=== PATIENT | female | born 1950 | race Hispanic/Latino ===

== ENCOUNTER 2020-04-22 10:42 | Inpatient (IN) | payer MEDICARE, OTHER ==
[~2020-04-22] VITALS: Ht 152.4 cm; Wt 60.9 kg
--- NOTE | 2020-04-22 19:35 | NUR ---
REPORT RECEIVED FROM SABI JOHNSTON.
--- NOTE | 2020-04-22 20:09 | NUR ---
SCHEDULED MEDICATIONS ADMINISTERED, ASSESSMENT COMPLETE, VS AND I/O'S COMPLETE. IVF INFUSING WNL, CALL LIGHT WITHIN REACH, PT STATES NO NEEDS AT THIS TIME
--- NOTE | 2020-04-22 21:31 | NUR ---
PT HAD CALLED WHEN I WAS IN ANOTHER PT RM, PT NEEDED TO GET UP TO THE BR, PT HAD VOIDED ON THE FLOOR BY THE TIME I GOT INTO THE RM, CLEANED UP FLOOR, PT BK IN BED AT THIS TIME, SCD'S REAPPLIED, NO FURTHER REQUEST AT THIS TIME
--- NOTE | 2020-04-23 02:12 | NUR ---
SCHEDULED VITAL SIGNS COMPLETE, ASSESSMENT, I/O'S COMPLETE. IVF INFUSING WNL. PT REQUESTED TO USE BEDPAN. TEMP 100.0, BLANKETS REMOVED, WILL CONTINUE TO MONITOR. CALL LIGHT WITHIN REACH.
--- NOTE | 2020-04-23 07:30 | NUR ---
Patient resting in bed at this time, respirations even and non labored. No notable distress. Call light within reach.
--- NOTE | 2020-04-23 08:39 | NUR ---
Chest x-ray completed.
--- NOTE | 2020-04-23 10:20 | NUR ---
Spoke with Danielle. She lives on the [place] with her nephew Chepe. States she is not enrolled with [facility]. Has not been feeling well. Plans on Lab vashti today as TF. Denies need for DME, but states she may need a commode as she has had diarreah with her gall bladder. Information given on [employer]. Pt has a cane and walker from her dad, but does not use. 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 Denies much use now. Declined Peer to Peer support from [facility] to discuss meth use. Plans to discharge to home when cleared by following surgery.
--- NOTE | 2020-04-23 11:30 | NUR ---
Patient resting in bed, respirations even and non labored. No needs at this time. Personal supplies and call light within reach.
--- NOTE | 2020-04-23 12:57 | NUR ---
PATIENT RESTING IN BED. VITAL SIGNS AND I&O DONE. CALL LIGHT WITHIN REACH. NO OTHER NEEDS AT THIS TIME
--- NOTE | 2020-04-23 13:14 | EKG ---
[facility] [address] [place], [place] [address] Signed Normal sinus rhythm Normal ECG No previous ECGs available Confirmed by DRE ALBARADO MD ([id number]) on 04/23/2020 1:13:49 PM Electronically Signed By: DRE ALBARADO MD 04/23/20 1314 PATIENT NAME: LEYLA VERA Electrocardiogram DATE OF : 48 PHYSICIAN: DRE ALBARADO MD REPORT #: [id number] REPORT IS CONFIDENTIAL AND NOT TO BE RELEASED WITHOUT AUTHORIZATION
--- NOTE | 2020-04-23 14:05 | NUR ---
PT ALERT, RESTING ON R SIDE WITH TV OFF. PT VERY QUIET AND SOFT SPOKEN. OCCASIONALLY SPEACH IS SLURRED, BUT MOSTLY PLEASANT. PT SAID SHE IS TIRED, GAVE BLESSING AND WILL FOLLOW
--- NOTE | 2020-04-23 14:16 | NUR ---
PATIENT IS IN BED RESTING. CALL LIGHT WAS ANSWERED AND PATIENT WALKED TO BR. FRESH GOWN AND DEPENDS GIVEN. ANOTHER PILLOW REQUESTED AND GIVEN. CALL LIGHT IS IN REACH. NO OTHER NEEDS AT THIS TIME.
--- NOTE | 2020-04-23 14:33 | NUR ---
PATIENT WAS WIPED DOWN WITH HIBICLEANS BEFORE SURGERY. CALL LIGHT IN REACH. NO OTHER NEEDS AT THIS TIME.
--- NOTE | 2020-04-23 16:10 | NUR ---
Patient left floor for surgery.
--- NOTE | 2020-04-23 18:56 | NUR ---
04/23/20 1856 Rubi Giang 1829 PT ARRIVED TO PACU ON 6L VIA MASK, PT ASLEEP WITH ORAL AIRWAY IN PLACE. RESP EVEN AND UNLABORED. 183 PT WAKES TO TACTILE STIMULI AND ORAL AIRWAY REMOVED. PT REORIENTED TO PACU. PT VERY DROWSY.
--- NOTE | 2020-04-23 19:39 | NUR ---
REPORT RECEIVED FROM SABI VILLA. PT STILL IN SURGERY.
--- NOTE | 2020-04-23 19:40 | NUR ---
PATIENT RETURNED FROM SURGERY, ASSESSMENT AND VITALS COMPLETE. IVF INFUSING WNL. VSS. PT ON 3L 02 NC, ABLE TO TITRATE TO ROOM AIR, SPO2 98%. PT UP TO BSC WITH SBA, VOID 400 ML. LAP SITES WITH SCANT AMOUNT SANGUINOUS DRAINAGE, MICHELL DRAIN WITH SMALL AMOUNT BRIGHT RED DRAINAGE. BOWEL TONES PRESENT, ABD SOFT. PT DENIES NAUSEA, TOLERATING SIPS OF WATER. NEW GOWN AND WARM BLANKET PROVIDED. PT STATES WILL UTILIZE CALL LIGHT. WILL CONTINUE TO MONITOR.
--- NOTE | 2020-04-23 20:49 | NUR ---
POST OP VITALS ASSESSED, SCHEDULED MEDICATIONS ADMINISTERED. ATTEMPTED TO CALL PT SON WITH UPDATE, NO ANSWER OR WRONG NUMBER PROVIDED. VSS. IVF INFUSING WNL. PT DENIES NAUSEA, STATES PAIN IS 2/10. WILL CONTINUE TO MONITOR.
--- NOTE | 2020-04-23 21:45 | NUR ---
POST OP VITALS ASSESSED, VSS. PT RESTING IN BED, DENIES PAIN OR NAUSEA. CALL LIGHT WITHIN REACH, NO OTHER NEEDS REPORTED AT THIS TIME. WILL CONT TO MONITOR.
--- NOTE | 2020-04-23 22:15 | NUR ---
pt was given a sandwich box.
--- NOTE | 2020-04-23 22:50 | NUR ---
LAST SET POST OP VSS. pt RESTING IN BED, DROWSY. LAP SITES W SCANT SANGUINOUS DRAINAGE. RIC DRAIN WITH SMALL AMOUNT SANGUINOUS DRAINAGE. pt DENIES PAIN. CALL LIGHT IN REACH.
--- NOTE | 2020-04-24 00:37 | NUR ---
SCHEDULED ABX ADMINISTERED. PRN TYLENOL GIVEN PER PT REQUEST FOR 1/10 PAIN. REPOSITIONED IN BED. IVF INFUSING WNL. CALL LIGHT WITHIN REACH, NO OTHER NEEDS AT THIS TIME, WILL CONT TO MONITOR.
--- NOTE | 2020-04-24 02:20 | NUR ---
ROUNDED ON PATIENT, VS COMPLETE. PT STATES "TYLENOL HELPED" AND IS EXPERIENCING "SLIGHT" PAIN. RESTING IN BED WITH LIGHTS OFF, CALL LIGHT WITHIN REACH.
--- NOTE | 2020-04-24 02:38 | NUR ---
ASSESSMENT COMPLETE. NEW BAG IVF STARTED. CALL LIGHT IN REACH.
--- NOTE | 2020-04-24 05:02 | NUR ---
PT RETURNED FROM SURGERY, POST OP VITALS COMPLETE. LAP SITES X3, WNL, SCANT SANGUINOUS DRAINAGE ON DRESSINGS. REINFORCED WITH GAUZE. RIC DRAIN IN PLACE, MODERATE AMOUNT SANGUINOUS DRAINAGE. PT STATES PAIN IS TOLERABLE, RATES 1/10. DENIES NAUSEA. IVF INFUSING WNL. VSS. BOWEL TONES ACTIVE, ABD MILDLY DISTENDED, SOFT UPON PALPATION. TOLERATING REGULAR DIET. ON ROOM AIR. USES CALL LIGHT APPROPRIATELY.
--- NOTE | 2020-04-24 05:48 | NUR ---
CALL LIGHT ANSWERED. SBA TO BR TO VOID. DRAINAGE NOTED ON GOWN, SMALL AMOUNT SEROSANGUINOUS DRAINAGE FROM RIC DRAIN SITE. GAUZE DRESSING REMOVED, CLEAN GAUZE APPLIED. RIC DRAIN EMPTIED. LAP SITES REINFORCED WITH GAUZE. CLEAN GOWN AND LINENS PROVIDED. IVF INFUSING WNL. VITALS COMPLETE--VSS. CALL LIGHT IN REACH. ROOM TIDIED. WILL CONT TO MONITOR.
--- NOTE | 2020-04-24 07:10 | NUR ---
In room for bedside shift report. Pt lying in bed, eyes closed, breathing even and unlabored. Report included all pts relevant hx and that her MICHELL/Robin drain had put out 45mls their shift, that lap sites are covered and have minimal drainage noted, and that pt has been alert and oriented for their shift. Report included that the pt has already been able to void and is able to ambulate with a SBA. Pt left as she was, table and call light within reach.
--- NOTE | 2020-04-24 08:30 | NUR ---
PATIENT RESTING IN BED. WHITE BOARD UPDATED. PATIENT'S BREAKFAST ORDERED. CALL LIGHT WITHIN REACH. NO OTHER NEEDS AT THIS TIME
--- NOTE | 2020-04-24 09:25 | NUR ---
PATIENT IS IN BED AND CHATTING WITH NURSE. WE EMPIED HER DRAIN. SHE HAS BEEN TALKING ABOUT FOOD IN OUR CONVERSATIONS, SHE HAS HER APPITITE. CALL LIGHT IN REACH. NO OTHER NEEDS AT THIS TIME.
--- NOTE | 2020-04-24 09:30 | NUR ---
In room for med pass and morning assessment. Pt alert, oreinted x4, and pleasant upon greeting. Pt able to take meds without difficulty. Pt assessment completed. VAMP THROATER present and taking vitals. MICHELL drain emptied with 15mls output. Pt reports 1/10 pain and no nausea. Pt encouraged and educated about getting up to chair and ambulating today, as apart of recovery. Pt refuses chair and ambulation at this time. Pt left lying in bed, side rails up, table and call light within reach.
--- NOTE | 2020-04-24 10:05 | NUR ---
THIS RN TO ROOM TO CHECK ON PT. PT REMAINS IN BED. PT ENCOURAGED TO GET UP TO AMBULATE. PT AGREES AND AMBULATES IN [place] X2 LAPS WITH STAND BY ASSIST. PT UP TO CHAIR. LUNCH ORDER PLACED. PT REPORTS 2/10 ACHING PAIN IN ABDOMENT. SEE MAR FOR MEDICAITON GIVEN. PT WATCHIGN TV. NO ADDITIONAL. REQUESTS OR COMPLAINTS AT THIS TIME. CALL LIGHT WITHIN REACH.
--- NOTE | 2020-04-24 11:10 | NUR ---
Spoke with Danielle. She states she feels so much better today, pain is significantly decreased. She is watching the news and begins speaking of President Trump and the change in his looks following having covid. She states she can see the spirits in people and has been able to do so since she was a child. She also begin speaking about the [place] [place] and god gave them special care. She states she and her sister were [place] [place]. Discussed how she manages at home and if her son and nephew will assist her. She states they take turns cooking and will help her until she is back on her feet.Plans on dc to home.
--- NOTE | 2020-04-24 11:20 | NUR ---
In room for rounding, pt discussing health with hospital bill adjuster. Pt alert and cooperative. Pt sitting up, reclining in chair, table and call light within reach. Pt reports no pain or needs at this time.
--- NOTE | 2020-04-24 12:00 | NUR ---
In room for assessment and pt care. Pt in bed, after ambulating. Pt reports 2/10 pain, just from the discomfort of her distended abdomen. Pt states she is "feeling better" though. New bag of fluids hung. Pt lying in bed, side rails up, table and call light within reach.
--- NOTE | 2020-04-24 12:40 | NUR ---
In room for rounding. Pt reports feeling "better" and having pain at 1/10 and no nausea. pt reports no further needs at this time. Pt left sitting up in chair, table and call light within reach.
--- NOTE | 2020-04-24 13:18 | NUR ---
PATIENT SITTING UP IN CHAIR. PATIENT USED THE BATHROOM. ONE PERSON ASSISTING. PATIENT BACKS TO CHAIR. VITAL SIGNS AND I&O DONE. PATIENT AMBULATING IN THE HALLWAY. ONE PERSON ASSISTING. PATIENT BACKS TO BED. CALL LIGHT WITHIN REACH. NO OTHER NEEDS AT THIS TIME
--- NOTE | 2020-04-24 13:40 | NUR ---
CHECKED WITH PT TO SEE IF SHE WANTED THE INSOLE TAPE STITCHER [facility] TO VISIT. SHE SAID SHE WOULD LIKE THAT. INFORMED FR DAVIES. WILL FOLLOW
--- NOTE | 2020-04-24 15:02 | NUR ---
THIS RN TO ROOM WITH MD FOR ROUNDS. ORDERS PLACED FOR ADDITIONAL LABS THIS AFTERNOON. PT REPORTS 2/10 PAIN AND REQUESTS PAIN MEDICATION. SEE MAR FOR MEDICATION GIVEN AND NOTE BY SABI DUEÑAS. NO ADDITIONAL REQUESTS OR COMPLAINTS. CALL LIGHT WITHIN REACH.
--- NOTE | 2020-04-24 16:00 | NUR ---
In room for rounding. Pt had her legs pulled up into her lap, seemingly picking at her toes. Pt explained her feet were "so messed up and all dry and flakey". Pts feet appeared dry and flakey indeed, so lotion and socks were applied. Pt verbalized gratitude. Pt reports 1/10 pain and no nausea at this time. Pts dinner was ordered. Pt has no further needs at this time. Pt given warm blanket and fresh water. Pt left lying in bed, side rails up, table and call light within reach.
--- NOTE | 2020-04-24 16:15 | NUR ---
In room for afternoon assessment. Pt alert and cooperative. Pt assessment complete, see charting. Pts drain had minimal amounts of serosanguinous fluid, three lap sites still have dressings intact, top site has one pea-sized spot of drainage from prior shift, no new drainage noted. Pts abdomen still mildly distended, pt states she feels "alright but still a bit distended". Pt reports 1/10 pain and no nausea. Pt reports no further needs, pt in bed, side rails up, table and call light within reach.
--- NOTE | 2020-04-24 17:06 | NUR ---
PATIENT RESTING IN BED. VITAL SIGNS AND I&O DONE. PATIENT DID NOT VOID DURING THIS PERIOD. PATIENT WAS ENCOURAGE TO USE THE BATHROOM BUT SHE SAID "I DON'T WANT TO GO NOW". CALL LIGHT WITHIN REACH. NO OTHER NEEDS AT THIS TIME
--- NOTE | 2020-04-24 18:26 | NUR ---
69 yr old female pt being treated post cholecystitis. In her lap choley, they noted that her gall bladder was actually gangrenous. Pt getting ABX in post care. Pt slurrs her words, but this seems to be from her dental deformations. Pt is tolerating her regular diet well, and is voiding quantity sufficient. Pt Has not yet had a bowel movement since her procedure which was at 1940 04/23/20. Pts AST and ALT were elevated in her labs this morning, redid the labs and they came back lower AST 84 ALT 63. Pt ambulated several times today. Pt has been having pain ranging between 1-5 out of 10, getting PRN tylenol and motrin for pain. Lap sites x3 looks clean dry and intact, apart from the top site having 1 pea sized red/brown spot of drainage from prior shift. MICHELL/Robin drain has been draining minimal amounts of serosanguinous fluid, <50mls this shift and <50mls last shift.
--- NOTE | 2020-04-24 19:34 | NUR ---
REPORT RECEIVED FROM SPENSER CELESTIN AND CATARINO CELESTIN. PATIENT AWAKE IN BED, DENIES PAIN OR NAUSEA AT THIS TIME. IVF INFUSING WNL. CALL LIGHT WITHIN REACH. WILL CONT TO MONITOR
--- NOTE | 2020-04-24 20:56 | NUR ---
SCHEDULED MEDICATIONS ADMINSTERED, ASSESSMENT COMPLETE, VITALS AND I/O'S COMPLETE. PT AMBULATED TO BR TO VOID. NOTICED IV ON R FA WAS INFILTRATED, DC'D AND STARTED NEW IV ON L WRIST, IVF INFUSING WNL. LAP SITES WNL, DRESSINGS C/D/I, RIC DRAIN WITH SMALL AMOUNT SEROSANGUINOUS DRAINAGE. WATER AND WARM BLANKET PROVIDED, SCDS ON. CALL LIGHT WITHIN REACH. NO FURTHER NEEDS AT THIS TIME.
--- NOTE | 2020-04-24 21:02 | NUR ---
PHONE CALL FROM , LAB RESULTS UPDATED. TELEPHONE ORDER FOR LIVER FUNCTION PANEL FOR 0600. ORDERS REPEATED BACK TO VERIFY.
--- NOTE | 2020-04-25 00:06 | NUR ---
SCHEDULED ABX ADMINISTERED. IV WNL. PT LAYING IN BED WITH EYES CLOSED, BREATHING EVEN AND UNLABORED. CALL LIGHT WITHIN REACH, NO APPARENT NEEDS AT THIS TIME.
--- NOTE | 2020-04-25 03:03 | NUR ---
PT UP TO BR TO VOID, RN JANEEN AND FRANCIS ORO NOTED IV TO BE PULLED OUT. ATTEMPTS TO START NEW IV BY TAWANNA CELESTIN, JANEEN RN, VICK RN, AND MARCEL CELESTIN. SEE VASCULAR ACCESS NOTES. ASSESSMENT COMPLETE, RIC DRAIN HAS SMALL AMOUNT SEROSANGUINOUS DRAINAGE, LAP SITES C/D/I. BOWEL TONES ACTIVE. PT DENIES PAIN OR NEEDS AT THIS TIME. CALL LIGHT IN REACH. IVF INFUSING WNL.
--- NOTE | 2020-04-25 04:35 | NUR ---
ROUNDED ON PATIENT, IN BED WITH LIGHTS OFF, EYES CLOSED, UNLABORED BREATHING. CALL LIGHT WITHIN REACH, NO APPARENT NEEDS AT THIS TIME. IVF INFUSING WNL. WILL CONTINUE TO MONITOR.
--- NOTE | 2020-04-25 05:08 | NUR ---
PATIENT IMPROVING THIS SHIFT. REPORTS MINIMAL PAIN AT 07/15, CONTROLLED WITH TYLENOL. RIC DRAIN HAS SMALL AMOUNT SEROSANGUINOUS DRAINAGE, LAP SITES X3 C/D/I, REINFORCED WITH GAUZE OVER STERI STRIPS. BOWEL TONES ACTIVE, ABD SOFT UPON PALPATION. VSS, A+O, LUNGS CLEAR, HRR. IVF INFUSING WNL. HAS USED CALL LIGHT APPROPRIATELY.
--- NOTE | 2020-04-25 05:38 | NUR ---
VS AND I/O'S COMPLETE, IVF INFUSING WNL. RIC DRAIN EMPTIED, 17 ML SEROSANGUINOUS FLUID THIS SHIFT. ROOM TIDIED, CALL LIGHT IN REACH.
--- NOTE | 2020-04-25 08:05 | NUR ---
PT SITTING UP IN CHAIR ALERT AND ORIENTED CALL LIGHT AND H2O IN REACH. ASSESSMENT COMPLETED AND AM MEDS ADMINISTERED. CALL LIGHT AND H2O IN REACH. NO NEEDS OR CONCERNS VOICED. PT VOICED READINESS TO BE DISCHARGED TODAY.
--- NOTE | 2020-04-25 09:19 | NUR ---
PATIENT UP IN CHAIR EATING BREAKFAST. VITLAS AND I&OS CHARTED. LINENS CHANGED, FACE WASHED. CALL LIGHT IN REACH
--- NOTE | 2020-04-25 11:43 | NUR ---
PT RESTING IN SEMIFOWLERS POSITION IN BED. ALERT AND ORIENTED CALL LIGHT AND H2O IN REACH. NO NEEDS OR CONCERNS VOICED. PT STATES "OH NO I'M DOING JUST FINE, THANK YOU"
[2020-04-25] MEDS ORDERED: ACETAMINOPHEN500 MG PO (12:00)
[2020-04-25] MEDS ORDERED: IBUPROFEN600 MG PO (12:00)
--- NOTE | 2020-04-25 12:08 | OR ---
[facility] [address], [place] [address] Signed DATE OF OPERATION: 04/23/2020 SURGEON: Yudy Minaya MD PREOPERATIVE DIAGNOSIS: Acute cholecystitis. POSTOPERATIVE DIAGNOSES: Severe acute cholecystitis; gangrenous cholecystitis. PROCEDURE: Laparoscopic cholecystectomy with intraoperative cholangiogram, prolonged complicated surgeon-directed fluoroscopy. ANESTHESIA: General endotracheal; Salma Cullen CRNA, and local 10 mL of 0.25% Marcaine with epinephrine. DRAINS: 7 mm Robin. INDICATIONS: This 69-year-old dark-skinned woman is a patient Dr. Saunders, who presented to the emergency room yesterday evening with significant right subcostal pain that had been going on for about a day. A gallbladder ultrasound showed a distended thickened gallbladder wall and a subsequent CT scan was performed, which showed obvious severe acute cholecystitis. Her white count was 19649. Liver enzymes are reasonably normal. Bilirubin 1.7. She was admitted, given intravenous fluid resuscitation, IV antibiotics and so forth and although somewhat improved, still requires cholecystectomy based on acute cholecystitis. The risks of bleeding, infection, bile duct injury, need for open procedure and other unforeseen complications were reviewed with her. She understands and wished to proceed. FINDINGS: Dense bile stained fibrinous rind was noted around the apex of the gallbladder with surrounding omentum. The liver itself was reasonably normal. The gallbladder showed gangrenous changes throughout. The excision was challenging, but accomplished safely. Cholangiogram showed possibly some sludge in the distal duct, but no well-formed stone. The gallbladder itself had no stones, only debris. Electronically Signed By: YUDY MINAYA MD 04/25/20 1208 PATIENT NAME: LEYLA VERA OPERATIVE REPORT DATE OF : 48 REPORT #: [id number] PHYSICIAN: YUDY MINAYA MD PCP: JACOBY SAUNDERS MD REPORT IS CONFIDENTIAL AND NOT TO BE RELEASED WITHOUT AUTHORIZATION [facility] [address] [place], [place] [address] Signed A complete cholecystectomy was performed, though it was prolonged, complicated, and difficult. DESCRIPTION OF PROCEDURE: The patient was brought to the operating room, given a general endotracheal anesthetic. Preoperative antibiotic Ancef was given. Sequential compression device stockings were used and heparin subcutaneously administered. The abdomen was prepared with a chlorhexidine solution and draped sterilely. An infraumbilical incision was made and using an open Es cannula technique, pneumoperitoneum achieved to a level of 14 mmHg of carbon dioxide gas. Intraabdominal inspection showed no sign of ascites or carcinomatosis. There was a bile-stained fibrinous rind around the apex of the gallbladder with surrounding omental adhesions. Three additional trocars were placed in usual configuration in the subxiphoid, right midclavicular, and right anterior axillary line. The gallbladder was gently elevated cephalad and was found to have a very friable and essentially necrotic gallbladder wall. Omental adhesions were taken down with blunt dissection. The gallbladder was noted to be quite markedly inflamed. In attempts at elevating the gallbladder, a rent was made in the gallbladder and egress of debris and so forth was noted, but there were no well-formed stones. This site was grasped and secured with an endo-loop allowing for better elevation. Ultimately, entire gallbladder could be visualized. The infundibulum itself was quite markedly inflamed and edematous and distinct bleeding seen. Surrounding tissues were challenging. Using blunt electrocautery dissection, the triangle of Calot was dissected free with all due care, ultimately identifying well the cystic duct. The cystic duct once dissected free was clipped proximally at the gallbladder cystic duct junction and a transverse choledochotomy made in the cystic duct. Retrograde milking of the cystic duct showed only mucoid-type material. Using an Blanchard type cholangiocatheter, intraoperative cholangiography was undertaken showing free flow of contrast in biliary tree with prompt emptying into the duodenum. The gallbladder itself was slightly dilated and had a shelf-like configuration in the distal portion with what appeared to be possibly sludge in the distal duct, but no well-formed stone. Careful inspection showed contrast passage into the duodenum and consideration for transcystic duct. Common duct exploration was made, but deemed actually under the circumstances of her intense inflammation and lack of well-formed stones. If sludges noted at the distal duct likely would pass without problem. The cystic duct catheter was removed and the cystic was triply clipped and divided. The gallbladder was dissected free in a retrograde fashion using electrocautery. Blunt dissection of the posterior wall was mostly effective as the gallbladder was completely necrotic from the posterior wall. The gallbladder once fully excised was placed in an endobag and extracted through the infraumbilical port site without problem, opened on the back table and found to have gangrenous changes of the mucosa as well. There was no sign of neoplasm. Irrigation was undertaken in subhepatic space. Hemostasis assured with electrocautery. For additional safety hemostatic agent, Avery was applied. Through a right-sided trocar Electronically Signed By: YUDY MINAYA MD 04/25/20 1208 PATIENT NAME: LEYLA VERA OPERATIVE REPORT DATE OF : 48 REPORT #: [id number] PHYSICIAN: YUDY MINAYA MD PCP: JACOBY SAUNDERS MD REPORT IS CONFIDENTIAL AND NOT TO BE RELEASED WITHOUT AUTHORIZATION [facility] [address] [place], [place] [address] Signed site, a 7 mm flat Robin drain was placed in the subhepatic space and secured the skin with a nylon suture. Fluid was suctioned free. The trocars were removed under direct visualization showing no sign of bleeding. The drain was placed in the subhepatic space and secured to the skin with nylon suture. The infraumbilical fascial incision was reapproximated with interrupted 0 Vicryl suture as well as interrupted 0 PDS suture as necessary. The skin was closed with interrupted 3-0 Vicryl and Steri-Strips were applied. The patient was ultimately extubated and transferred to the recovery room in good condition having suffered no complications. Sponge, needle, and instrument counts were reported as correct x3. MD GHASSAN Chase/MODL /[id number] cc: Dr. Zan Saunders Copies: ~ Electronically Signed By: YUDY MINAYA MD 04/25/20 1208 PATIENT NAME: LEYLA VERA OPERATIVE REPORT DATE OF : 48 REPORT #: [id number] PHYSICIAN: YUDY MINAYA MD PCP: JACOBY SAUNDERS MD REPORT IS CONFIDENTIAL AND NOT TO BE RELEASED WITHOUT AUTHORIZATION
--- NOTE | 2020-04-25 12:08 | HP ---
[facility] [address], [place] [address] Signed ADMISSION DATE: 04/22/2020 REASON FOR ADMISSION: Acute calculous cholecystitis. HISTORY OF PRESENT ILLNESS: This 69-year-old dark[place]skinned [place] to [place] emergency room, where she was evaluated thoroughly by Dr. Jerry. She had epigastric pain beginning the day before current evaluation as well as some nausea and vomiting. She had no fever or chills, or chest pain or cough. She does have history of reflux and previously took Zantac with good benefit, but has not taken it since it has been taken off the market recently. The patient was found to have epigastric tenderness and a white count elevated greater than 21,000, and underwent a gallbladder ultrasound, which showed a distended gallbladder with debris. Subsequently, a CT scan was performed confirming high probability of acute cholecystitis. She was admitted for further evaluation and care. Special note, the patient does use methamphetamine on a routine basis including yesterday. In addition to that, she does have gastroesophageal reflux as described. She denies any prior abdominal surgery. She denies any alcohol use and smokes daily as well as imbibes marijuana. REVIEW OF SYSTEMS: She denies any shortness of breath or chest pain at this time. Does have upper abdominal pain. She has had no nausea or vomiting recently. PHYSICAL EXAMINATION: GENERAL: This is a very chronically ill and somewhat cachectic dark skin woman, who is alert and oriented, and not systemically toxic surprisingly. VITAL SIGNS: Temperature 98.3, pulse 61, blood pressure 122/73, O2 saturation on room air is 95%. She has a fair number of missing teeth, though her lower mandible does have central teeth. NECK: Without sign of swelling or cervical adenopathy. CHEST: Shows no tachypnea and is clear. ABDOMEN: Somewhat distended, but without signs of ascites. There is tenderness in the epigastric and subcostal area. I palpated no palpable mass. EXTREMITIES: Generalized wasting. LABORATORY STUDIES: Show white count 85107, hematocrit 51.7, platelets 173,000. Chem profile was normal. Electronically Signed By: YUDY MINAYA MD 04/25/20 1208 PATIENT NAME: LEYLA VERA HISTORY AND PHYSICAL DATE OF : 48 REPORT #: [id number] PHYSICIAN: YUDY MINAYA MD PCP: JACOBY BUTCHER MD REPORT IS CONFIDENTIAL AND NOT TO BE RELEASED WITHOUT AUTHORIZATION [facility] [address], [place] [address] Signed Creatinine is 1.03, glucose 126, total bilirubin 1.5. Liver enzymes normal. Lipase 5. Globulin 3.8, albumin is 3.9. IMAGING STUDIES: Including ultrasound of the abdominal and pelvic CT were reviewed personally and reports also reviewed. Findings were consistent acute cholecystitis. She had some platelike atelectasis of the left lung base. The gallbladder was distended with a mildly thickened wall and hazy fat surrounding that. There were no glen stones, but some debris was noted. Kidneys were unremarkable. Extensive diverticulosis of the colon without associated diverticulitis. There is decompression of small bowel. No free air. No sign of perforated ulcer. The ultrasound was reviewed, which showed a distended and somewhat tense appearing gallbladder 4.7 cm in diameter, but not hydropic. There was some debris in the gallbladder either tiny stones or sludge. ASSESSMENT: The patient has acute cholecystitis with stone debris or sludge or something of that sort. Clinical findings are concordant to her imaging studies. She has underlying chronic medical issues including methamphetamine use and so on as well as reflux disease. She is best managed by admission to the hospital, IV fluid resuscitation, IV antibiotic administration, anticipating cholecystectomy tomorrow. I discussed with her the risks of bleeding, infection, bile duct injury, need for open procedure and of course, other unforeseen complications related to surgery. She understands and wished to proceed as we have described. MD GHASSAN Chase/MARCIAL /[id number] cc: Dr. [facility] Copies: Electronically Signed By: YUDY MINAYA MD 04/25/20 1208 PATIENT NAME: LEYLA VERA HISTORY AND PHYSICAL DATE OF : 48 REPORT #: [id number] PHYSICIAN: YUDY MINAYA MD PCP: JACOBY BUTCHER MD REPORT IS CONFIDENTIAL AND NOT TO BE RELEASED WITHOUT AUTHORIZATION [facility] [address], [place] [address] Signed ~ Electronically Signed By: YUDY MINAYA MD 04/25/20 1208 PATIENT NAME: LEYLA VERA HISTORY AND PHYSICAL DATE OF : [birth year] REPORT #: [id number] PHYSICIAN: YUDY MINAYA MD PCP: JACOBY BUTCHER MD REPORT IS CONFIDENTIAL AND NOT TO BE RELEASED WITHOUT AUTHORIZATION
[2020-04-25] MEDS ORDERED: VENTOLIN HFA18 GM (12:21)
[2020-04-25] MEDS ORDERED: PEPCID20 MG PO (12:21)
--- NOTE | 2020-04-25 13:00 | NUR ---
Spoke with Danielle. She is sitting up. Has spoken with Dr. Park and plans to dc shortly. Denies needs to go home, family will pick her up. They are not working so will be home with her.
--- NOTE | 2020-04-25 14:27 | DS ---
[facility] [address] [facility] [place] [place] [address] Signed ADMISSION DATE: 04/22/2020 DISCHARGE DATE: 04/25/2020 REASON FOR ADMISSION: This 69-year-old dark-skinned woman is a patient of Dr. Saunders, who presented to the emergency room in the evening with significant right subcostal pain that had been going on for at least a day. A gallbladder ultrasound showed a distended thickened gallbladder wall and subsequent CT scan performed by Dr. Zuluaga in the emergency room showed obvious severe acute cholecystitis[place] [address]. Liver enzymes reasonably normal. Bilirubin 1.7. She was admitted for further evaluation and care. PERTINENT PHYSICAL EXAMINATION: GENERAL: Showed a very chronically ill-appearing dark-skinned woman with poor dentition. NECK: Trachea is midline. HEENT: Mucous membranes were dry. CHEST: Clear. HEART: Regular without murmur. ABDOMEN: Not particularly distended, but somewhat obese, marked tenderness was noted in the epigastric and right subcostal area. There is no mass and no ascites. EXTREMITIES: Show no clubbing, cyanosis, or edema. LABORATORY STUDIES: [place] [address]. Hematocrit 51.7, platelets 173,000, band form 7%. Lab studies showed normal electrolytes. Creatinine was 0.85. Alkaline phosphatase was 143, AST 42, ALT 49, bilirubin total was 0.7. HOSPITAL COURSE: She was fluid resuscitated and given broad-spectrum antibiotic Rocephin initially and subsequently Ancef. On April 23, 2020, she underwent laparoscopy where she was found to have an impressively inflamed gallbladder with gangrenous changes overall. The operation was difficult. The gallbladder was quite markedly necrotic. There were no stones. Cholangiogram was normal. A drain was placed. Postoperatively, she was much improved clinically. Postoperative lab studies showed a decreased white count to 16.2, elevation of her bilirubin to 3.0 with an alkaline phosphatase of 379, ALT 88, AST 25. It is noted that cholangiogram is performed and the operation showed free flow of contrast into the biliary tree, but there was the shelf-like finding in the distal common duct that was not suggestive of stone, but might have represented sludge. Additionally, there were no stones in the gallbladder. Electronically Signed By: YUDY MINAYA MD 04/25/20 1427 PATIENT NAME: LEYLA VERA DISCHARGE SUMMARY DATE OF : 48 REPORT #: [id number] PHYSICIAN: YUDY MINAYA MD PCP: JACOBY SAUNDERS MD REPORT IS CONFIDENTIAL AND NOT TO BE RELEASED WITHOUT AUTHORIZATION [facility] [address] [place], [place] [address] Signed Her lab studies were repeated 12 hours later showing quite a bit of improvement including a bilirubin of 1.5 and by day of discharge, bilirubin was 0.7. Liver enzymes are improving as well. At discharge, her alkaline phosphatase is down to 280. She is clinically doing well, tolerating a regular diet. The drain that was placed showed no sign of bile leak and was removed. She was discharged home in good condition. DISCHARGE DIAGNOSES: 1. Severe acute gangrenous cholecystitis, status post laparoscopic cholecystectomy with intraoperative cholangiogram on April 23, 2020. 2. Routine methamphetamine abuse. 3. General debility. FOLLOWUP PLAN: She is return to see me in approximately 4 weeks in the office. She is instructed to lift no more than 20 pounds for the next 2 weeks. She is permitted to shower and keep Steri-Strips in place. DISCHARGE MEDICATIONS: Will include: 1. Motrin 600 mg p.o. q.6 hours p.r.n. pain #60. 2. Tylenol 500 mg tablets two tablets p.o. q.6 hours as needed for pain #60. MD GHASSAN Chsae/EULALIOL /[id number] cc: Dr. Zan Saunders Copies: Electronically Signed By: YUDY MINAYA MD 04/25/20 1427 PATIENT NAME: LEYLA VERA DISCHARGE SUMMARY DATE OF : 48 REPORT #: [id number] PHYSICIAN: YUDY MINAYA MD PCP: JACOBY SAUNDERS MD REPORT IS CONFIDENTIAL AND NOT TO BE RELEASED WITHOUT AUTHORIZATION [address] [place], [place] [address] Signed ~ Electronically Signed By: YUDY MINAYA MD 04/25/20 1427 PATIENT NAME: LEYLA VERA DISCHARGE SUMMARY DATE OF : 48 REPORT #: [id number] PHYSICIAN: YUDY MINAYA MD PCP: JACOBY SAUNDERS MD REPORT IS CONFIDENTIAL AND NOT TO BE RELEASED WITHOUT AUTHORIZATION
--- NOTE | 2020-04-25 14:27 | NUR ---
PATIENT HAS SHOWERED AND IS WAITING FOR DISCHARGE. VITALS AND I&OS CHARTED.
--- NOTE | 2020-04-26 11:15 | PATH ---
[facility] [address] [facility] [place], [place] [address] Signed SPECIMEN(S): A GALLBLADDER SPECIMEN SOURCE: A. GALLBLADDER CLINICAL HISTORY: Acute cholecystitis, gangrenous cholecystitis. FINAL PATHOLOGIC DIAGNOSIS: Gallbladder, cholecystectomy: - Severe acute cholecystitis with gallbladder wall necrosis and abscess formation. - Cholelithiasis. NAL:cml:C2NR MICROSCOPIC EXAMINATION: Histologic sections of all submitted blocks are examined by light microscopy. These findings, together with the gross examination, support the pathologic diagnosis. GROSS DESCRIPTION: The specimen, labeled "LM," and designated on the requisition "gallbladder (gangrenous)," is received in formalin and consists of Specimen: Previously opened gallbladder. Dimensions: 9.3 x 4.8 x 2.2 cm. Serosa: Brown-monae and devitalized. Cystic Duct: unobstructed. Calculi: Friable orange-brown calculi (1.5 x 1.1 x 0.5 cm in aggregate). Mucosa: Green-brown to white-monae and devitalized. Wall thickness: 0.5 cm. Lymph node: No pericystic lymph nodes are grossly identified. Additional: None. Straw Boss sections are submitted in cassette (A1). AC (under the direct supervision of a pathologist) The Gross Description was prepared using a voice recognition system. The report was reviewed for accuracy; however, sound-alike word errors, addition and/or deletions may occur. If there is any question about this report, please contact Client Services. PERFORMING LABORATORY: The technical component was performed by [employer], Sly Ashley, PATIENT NAME: LEYLA VERA PATHOLOGY DATE OF : 48 REPORT #: [id number] PHYSICIAN: ELOY CORTEZ PCP: JACOBY BUTCHER MD REPORT IS CONFIDENTIAL AND NOT TO BE RELEASED WITHOUT AUTHORIZATION [facility] [address] [place], [place] [address] [place] [address] ([employer] Consultant: Medina Maher MD; CLIA# [id number]). Professional interpretation was performed by [facility], [address] [address] (CLIA# [id number]). Diagnostician: Bella Hood MD Pathologist Electronically Signed 04/26/2020 Copies: ~ PATIENT NAME: LEYLA VERA PATHOLOGY DATE OF : 48 REPORT #: [id number] PHYSICIAN: ELOY CORTEZ PCP: JACOBY BUTCHER MD REPORT IS CONFIDENTIAL AND NOT TO BE RELEASED WITHOUT AUTHORIZATION
== END 2020-04-25 14:36 | disposition home or self-care (01) | DRG 419 ==
LOC: ED 10:42 → MS 10:44
PROVIDERS: ADMIT Surgery; ATTEND Surgery
PROC: BF101ZZ Fluoroscopy of Bile Ducts using Low Osmolar Contrast (ICD-10-PCS; 2020-04-23)
PROC: 0FT44ZZ Resection of Gallbladder, Percutaneous Endoscopic Approach (ICD-10-PCS; principal; 2020-04-23 16:40)
DX: K80.00 Calculus of gallbladder with acute cholecystitis without obstruction (principal); K82.A1 Gangrene of gallbladder in cholecystitis; Z20.828 Contact with and (suspected) exposure to other viral communicable diseases; F15.10 Other stimulant abuse, uncomplicated; F17.200 Nicotine dependence, unspecified, uncomplicated; R53.81 Other malaise
CPT/HCPCS: 00790; 36415; 71045; 74177; 74300; 76705; 80053; 80076; 82247; 82465; 82977; 83615; 83690; 84100; 84478; 84550; 85025; 90662; 93005; 93010; 96361; 99285-25; 99406; A9270; C9803; J0330; J0690; J0694; J1100; J1170; J1644; J1885; J2001; J2405; J2704; J2765; J3010; J7030; J7121; Q9967